=== PATIENT | male | born 1955 | race African-American/Black ===

== ENCOUNTER 2017-06-13 06:05 | Day surgery (SDC) | payer OTHER ==
[~2017-06-13 06:05] MED LIST: CEFAZOLIN 2 GM/50 ML (PMX) 50 ML IVPB; SOD CHLORIDE 0.9% 1,000 ML IV
[2017-06-13] MEDS ORDERED: BUPIVACAINE 0.25% (MPF) 30 ML INJ (07:11)
[2017-06-13] MEDS ORDERED: POLYMYXIN/BACITRACIN 1L IRRIG (07:11)
[2017-06-13] MEDS ORDERED: FENTAnyl 50 MCG/ML VIAL (07:35)
[2017-06-13] MEDS ORDERED: ROPIVACAINE 0.5 % 30 ML VIAL (07:43)
[2017-06-13] MEDS: BUPIVACAINE 0.25% (MPF) 30 ML INJ INJ (08:18)
[2017-06-13] MEDS: POLYMYXIN/BACITRACIN 1L IRRIG IRR (08:18)
[2017-06-13] MEDS ORDERED: SUGAMMADEX SODIUM 200 MG/2 ML VIAL IV (08:24)
[2017-06-13] MEDS ORDERED: FENTAnyl 50 MCG/ML VIAL IV ×3 (08:30)
[2017-06-13] MEDS ORDERED: HYDROmorphONE (0.2 MG/ML) 10ML SYG IV ×2 (08:30)
[2017-06-13] MEDS ORDERED: DIPHENHYDRAMINE 50 MG INJ IV (08:30)
[2017-06-13] MEDS ORDERED: METOCLOPRAMIDE 10 MG INJ IV (08:30)
[2017-06-13] MEDS ORDERED: hydrALAzine 20 MG INJ IV (08:30)
[2017-06-13] MEDS: MEPERIDINE 25 MG INJ IV (08:45)
[2017-06-13] MEDS: HYDROmorphONE (0.2 MG/ML) 10ML SYG IV ×2 (08:45→09:00)
[2017-06-13] MEDS: ONDANSETRON 4 MG INJ IV (08:45)
[2017-06-13] MEDS: HYDROCODONE/APAP (5/325) TAB PO (10:35)
== END 2017-06-13 10:51 | disposition home or self-care (01) ==
LOC: SDS 06:05
DX: K40.90 Unilateral inguinal hernia, without obstruction or gangrene, not specified as recurrent (principal); E78.5 Hyperlipidemia, unspecified
CPT/HCPCS: 49505

== ENCOUNTER 2017-10-23 10:08 | Day surgery (SDC) | payer OTHER ==
[2017-10-23] MEDS ORDERED: LIDOCAINE 2% (SDV) 5 ML INJ (10:48)
[2017-10-23] MEDS ORDERED: PROPOFOL 40 ML (10:48)
== END 2017-10-23 14:37 | disposition home or self-care (01) ==
LOC: GIL 10:08
DX: Z12.11 Encounter for screening for malignant neoplasm of colon (principal); K57.30 Diverticulosis of large intestine without perforation or abscess without bleeding; K64.8 Other hemorrhoids; K29.70 Gastritis, unspecified, without bleeding; R63.4 Abnormal weight loss; I10 Essential (primary) hypertension; I48.91 Unspecified atrial fibrillation; E78.5 Hyperlipidemia, unspecified; N40.0 Benign prostatic hyperplasia without lower urinary tract symptoms; Z79.01 Long term (current) use of anticoagulants
CPT/HCPCS: 43235

== ENCOUNTER 2017-11-08 07:48 | Day surgery (SDC) | payer OTHER ==
[2017-11-08] MEDS: BUPIVACAINE 0.25% (MPF) 30 ML INJ INJ
[2017-11-08] MEDS: POLYMYXIN/BACITRACIN 1L IRRIG IRR
[2017-11-08] MEDS: SOD CHLORIDE 0.9% 1,000 ML IV ×2 (06:00→09:19)
[~2017-11-08 07:48] MED LIST changes: +ROCURONIUM 50 MG INJ
[2017-11-08 09:15] LABS: ADD MAN DIFF? NO
[2017-11-08 09:19] LABS: BASOPHILS % 0.3 % (0.0-2.0); EOSINOPHILS % 1.4 % (0.0-7.0); HEMATOCRIT 43.6 % (42.0-52.0); HEMOGLOBIN 14.8 g/dl (14.0-18.0); LYMPHOCYTES # 1.1 10^3/ul (0.8-2.9); LYMPHOCYTES % 38.3 % (15.0-51.0); MEAN CORPUSCULAR HEMOGLOBIN 27.5 pg (29.0-33.0); MEAN CORPUSCULAR HGB CONC 33.9 g/dl (32.0-37.0); MEAN CORPUSCULAR VOLUME 80.9 fl (82.0-101.0); MEAN PLATELET VOLUME 10.8 fl (7.4-10.4); MONOCYTE # 0.3 10^3/ul (0.3-0.9); MONOCYTES % 10.7 % (0.0-11.0); NEUTROPHIL # 1.4 10^3/ul (1.6-7.5); NEUTROPHILS % 49.3 % (39.0-77.0); PLATELET COUNT 192 10^3/UL (140-415); RED BLOOD COUNT 5.39 10^6/ul (4.70-6.10); RED CELL DISTRIBUTION WIDTH 14.7 % (11.5-14.5)
[2017-11-08 09:19] LABS: WHITE BLOOD COUNT 2.9 10^3/ul (4.8-10.8)
[2017-11-08 09:35] LABS: ALANINE AMINOTRANSFERASE 39 IU/L (13-69); ALBUMIN/GLOBULIN RATIO 1.21; ALKALINE PHOSPHATASE 66 IU/L (42-121); ANION GAP 11 (8-16); ASPARTATE AMINO TRANSFERASE 24 IU/L (15-46); BILIRUBIN,INDIRECT 0.9 mg/dl (0-1.1); BILIRUBIN,TOTAL 0.9 mg/dl (0.2-1.3); BLOOD UREA NITROGEN 14 mg/dl (7-20); CALCIUM 9.4 mg/dl (8.4-10.2); CARBON DIOXIDE 25 mmol/L (21-31); CHLORIDE 108 mmol/L (97-110); CREATININE 0.87 mg/dl (0.61-1.24); GLUCOSE 101 mg/dl (70-220); SODIUM 140 mmol/L (135-144); TOTAL PROTEIN 7.3 g/dl (6.1-8.1)
[2017-11-08 09:36] LABS: HOLD TRANSMISSIONS 1; INR 1.85; PROTIME 21.8 Sec (11.9-14.9); PT RATIO 1.7
[2017-11-08 09:46] LABS: PARTIAL THROMBOPLASTIN TIME 38.2 Sec (25.0-35.0)
[2017-11-08] MEDS ORDERED: BUPIVACAINE 0.25% (MPF) 30 ML INJ (09:59)
[2017-11-08] MEDS ORDERED: CEFAZOLIN 1 GM INJ (10:07)
[2017-11-08] MEDS ORDERED: PROPOFOL 20 ML (10:07)
[2017-11-08] MEDS ORDERED: MIDAZOLAM 1 MG/ML 2 ML INJ (10:07)
[2017-11-08] MEDS ORDERED: METOCLOPRAMIDE 10 MG INJ (10:17)
[2017-11-08] MEDS ORDERED: ONDANSETRON 4 MG INJ (10:17)
[2017-11-08] MEDS ORDERED: DEXAMETHASONE 4 MG/ML 1 ML INJ (10:17)
[2017-11-08] MEDS ORDERED: FENTAnyl 50 MCG/ML VIAL IV ×3 (10:30)
[2017-11-08] MEDS ORDERED: METOCLOPRAMIDE 10 MG INJ IV (10:30)
[2017-11-08] MEDS ORDERED: EPHEDrine SULFATE 50 MG/5 ML SYG IV (10:30)
[2017-11-08] MEDS ORDERED: HYDROmorphONE 1 MG/5 ML IV SYRINGE IV ×3 (10:30)
[2017-11-08] MEDS ORDERED: LABETALOL HCL 20MG INJ IV (10:30)
[2017-11-08] MEDS ORDERED: OXYCODONE/ACETAMINOPHEN (5/325) TAB PO (10:30)
[2017-11-08] MEDS ORDERED: ONDANSETRON 4 MG INJ IV (10:30)
[2017-11-08] MEDS ORDERED: hydrALAzine 20 MG INJ IV (10:30)
[2017-11-08] MEDS ORDERED: DIPHENHYDRAMINE 50 MG INJ IV (10:30)
[2017-11-08] MEDS ORDERED: ACETAMINOPHEN 1000MG/100ML IV 100 ML (10:51)
[2017-11-08] MEDS ORDERED: SUGAMMADEX SODIUM 200 MG/2 ML VIAL IV (10:53)
[2017-11-08] MEDS ORDERED: HYDROCODONE/APAP (5/325) TAB PO (11:00)
[2017-11-08] MEDS: MEPERIDINE 25 MG INJ IV (11:54)
[2017-11-08] MEDS: CEFAZOLIN 2 GM/50 ML (PMX) 50 ML IVPB ×2 (11:56)
[2017-11-08] MEDS: OXYCODONE/ACETAMINOPHEN (5/325) TAB PO (12:04)
== END 2017-11-08 12:54 | disposition home or self-care (01) ==
LOC: SDS 07:48
DX: K40.30 Unilateral inguinal hernia, with obstruction, without gangrene, not specified as recurrent (principal); I10 Essential (primary) hypertension; I48.91 Unspecified atrial fibrillation; Z79.01 Long term (current) use of anticoagulants
CPT/HCPCS: 49507; 71045; 80053; 85025; 85610; 85730; 93005